=== PATIENT | female | born 1990 | race African-American/Black ===

== ENCOUNTER 2018-01-29 15:52 | Emergency (ER) | payer OTHER ==
[~2018-01-29] VITALS: Ht 162.6 cm; Wt 73.0 kg
[~2018-01-29 15:52] MED LIST: CIPRO500 MG PO; NAPROSYN500 MG PO
[2018-01-29] MEDS ORDERED: MEDROLDOSEPACK PO (16:25)
[2018-01-29] MEDS ORDERED: ZANTAC 150MG T150 MG PO (16:25)
[2018-01-29 16:44] VITALS: BP 124/68
== END 2018-01-29 16:45 | disposition home or self-care (01) ==
LOC: M.ERS 15:52
DX: L50.9 Urticaria, unspecified (principal); W57.XXXA Bitten or stung by nonvenomous insect and other nonvenomous arthropods, initial encounter; Y93.89 Activity, other specified; Y92.89 Other specified places as the place of occurrence of the external cause; Y99.8 Other external cause status

== ENCOUNTER 2018-07-04 13:23 | Emergency (ER) | payer OTHER ==
[~2018-07-04] VITALS: Ht 162.6 cm; Wt 72.6 kg
[~2018-07-04 13:23] MED LIST changes: +MEDROLDOSEPACK PO; +ZANTAC 150MG T150 MG PO
[2018-07-04 13:50] LABS: URINE BILIRUBIN NEGATIVE (Negative); URINE BLOOD TRACE (Negative); URINE CLARITY CLEAR; URINE COLOR YELLOW; URINE GLUCOSE-RANDOM NEGATIVE (Negative); URINE KETONES NEGATIVE (Negative); URINE LEUKOCYTES-REFLEX NEGATIVE (Negative); URINE NITRITE-REFLEX NEGATIVE (Negative); URINE PROTEIN NEGATIVE (Negative); URINE UROBILINOGEN 0.2 E.U./dl (0.2-1.0)
[2018-07-04 14:05] LABS: ABSOLUTE LYMPHOCYTES 1.6 thou/uL (0.8-5.3); ABSOLUTE MONOCYTES 0.4 thou/uL (0.0-1.2); ABSOLUTE NEUTROPHILS 3.2 thou/uL (1.6-8.1); BASOPHILS 0.5 %; EOSINOPHILS 0.8 %; HEMATOCRIT 34.8 % (37.0-47.0); HEMOGLOBIN 11.6 gm/dL (12.0-15.0); LYMPHOCYTES 30.7 %; MCH 27.8 pg (26.0-34.0); MCHC 33.3 g/dL (28.0-37.0); MCV 83.6 fL (80.0-100.0); MONOCYTES 7.8 %; MPV 8.4 fl. (7.2-11.1); NUCLEATED RBCS 0 /100WBC; PLATELET COUNT* 283 thou/uL (150-400); POLYS 60.2 %; RBC 4.16 mil/uL (4.20-5.00); RDW-CV 14.3 % (10.5-14.5); WBC 5.3 thou/uL (4.0-11.0)
[2018-07-04 14:11] LABS: ANION GAP 6 mmol/L (7-16); BUN 8 mg/dL (7-18); CALCIUM 9.1 mg/dL (8.5-10.1); CHLORIDE 103 mmol/L (98-107); CO2 30 mmol/L (21-32); CREATININE 0.7 mg/dL (0.6-1.3); GLUCOSE 112 mg/dL (70-99); POTASSIUM 3.2 mmol/L (3.5-5.1); SODIUM 139 mmol/L (136-145)
[2018-07-04 14:18] LABS: ALKALINE PHOSPHATASE 43 U/L (46-116); LIPASE 129 U/L (73-393); SGOT 13 U/L (15-37); SGPT 14 U/L (30-65); TOTAL BILIRUBIN 0.5 mg/dL (<0.1-1.0); TOTAL PROTEIN 8.1 g/dL (6.4-8.2); TROPONIN-I LEVEL <0.06 ng/mL (<0.06)
[2018-07-04] MEDS ORDERED: HYDROXYZINE HCL25 M1 PO (14:30)
[2018-07-04] MEDS ORDERED: POTASSIUM20 PO (14:40)
[2018-07-04 14:49] VITALS: BP 120/58
--- NOTE | 2018-07-04 15:02 | EKG ---
[place] [address] ELECTROCARDIOGRAM REPORT Name: GALOSHALINI Room: [facility]#: [id number] Admission: 07/04/18 Attend Phys: Discharge: 07/04/18 Date of : [birth year] Report #: [id number] THIS REPORT FOR: //name// [facility] ED Test Date: 2018-07-04 Test Time: 13:29:47 Pat Name: SHALINI ROSENTHAL Department: Room: Gender: F Tax Associate Attorney: : 1990 Requested By: Keyla Guadarrama Order Number: [id number] MD: Luca Soliman Measurements Intervals [place] Rate: 72 P: 43 NH: 159 QRS: 14 QRSD: 74 T: -17 QT: 381 QTc: 417 Interpretive Statements Sinus rhythm Borderline T abnormalities, diffuse leads No previous ECG available for comparison Electronically Signed On 07-04-2018 15:01:45 TEST DIRECTOR by Luca Soliman [email or web address] <ELECTRONICALLY SIGNED> By: Luca Soliman MD, [facility] 07/04/18 1501 1329 [id number] Luca Soliman MD, FACC /EPI
== END 2018-07-04 14:51 | disposition home or self-care (01) ==
LOC: M.ERS 13:23
PROVIDERS: Physician Assistant
DX: F41.9 Anxiety disorder, unspecified (principal); R53.1 Weakness; E87.6 Hypokalemia

== ENCOUNTER 2019-07-09 09:17 | Emergency (ER) | payer OTHER ==
[~2019-07-09] VITALS: Ht 162.6 cm; Wt 76.2 kg
[~2019-07-09 09:17] MED LIST changes: +HYDROXYZINE HCL25 M1 PO; +POTASSIUM20 PO
[2019-07-09 09:31] VITALS: BP 130/89
== END 2019-07-09 09:53 | disposition home or self-care (01) ==
LOC: M.ERS 09:17
DX: B35.4 Tinea corporis (principal)

== ENCOUNTER 2020-06-04 16:54 | Emergency (ER) | payer OTHER ==
[~2020-06-04] VITALS: Ht 162.6 cm; Wt 78.9 kg
[2020-06-04 17:33] LABS: URINE BILIRUBIN NEGATIVE (Negative); URINE BLOOD TRACE (Negative); URINE CLARITY CLEAR; URINE COLOR YELLOW; URINE GLUCOSE-RANDOM NEGATIVE (Negative); URINE KETONES NEGATIVE (Negative); URINE LEUKOCYTES-REFLEX TRACE (Negative); URINE NITRITE-REFLEX NEGATIVE (Negative); URINE PROTEIN NEGATIVE (Negative); URINE UROBILINOGEN 0.2 E.U./dl (0.2-1.0)
[2020-06-04 17:50] LABS: ABSOLUTE BASOPHILS 0.1 thou/uL (0.0-0.2); ABSOLUTE EOSINOPHILS 0.1 thou/uL (0.0-0.7); ABSOLUTE MONOCYTES 0.6 thou/uL (0.0-1.2); BASOPHILS 0.8 %; EOSINOPHILS 0.8 %; HEMATOCRIT 33.7 % (37.0-47.0); HEMOGLOBIN 10.8 gm/dL (12.0-15.0); LYMPHOCYTES 25.9 %; MCHC 32.2 g/dL (28.0-37.0); MCV 77.8 fL (80.0-100.0); MONOCYTES 7.3 %; MPV 8.3 fl. (7.2-11.1); NUCLEATED RBCS 0 /100WBC; PLATELET COUNT* 377 thou/uL (150-400); POLYS 65.2 %; RBC 4.33 mil/uL (4.20-5.00); RDW-CV 15.5 % (10.5-14.5); WBC 7.6 thou/uL (4.0-11.0)
[2020-06-04 18:06] LABS: CASTS None Seen /LPF (None Seen); SQUAMOUS >10 Many /LPF (0-3); URINE RBC 0-2 Rare /HPF (0-2); URINE WBC-REFLEX 0-5 Rare /HPF (0-5)
[2020-06-04 18:07] LABS: BACTERIA-REFLEX 1-9 Few /HPF (None Seen); CRYSTALS None Seen /LPF (None Seen); MUCUS 0-3 Light strn/LPF (None Seen)
[2020-06-04 18:20] LABS: CALCIUM 9.1 mg/dL (8.5-10.1); CREATININE 0.6 mg/dL (0.6-1.3)
[2020-06-04 18:24] LABS: ALBUMIN 3.9 g/dL (3.4-5.0); TOTAL BILIRUBIN 0.3 mg/dL (<0.1-1.0); TOTAL PROTEIN 8.4 g/dL (6.4-8.2)
[2020-06-04] MEDS ORDERED: BENTYL 20 MG TA20 M1 PO (19:58)
[2020-06-04] MEDS ORDERED: NABUMETONE 750750 M1 PO (19:58)
[2020-06-04 20:36] VITALS: BP 129/76
== END 2020-06-04 20:36 | disposition home or self-care (01) ==
LOC: M.ERS 16:54
PROVIDERS: Nurse Practitioner Family
DX: N83.202 Unspecified ovarian cyst, left side (principal); N83.201 Unspecified ovarian cyst, right side; D25.9 Leiomyoma of uterus, unspecified; R19.7 Diarrhea, unspecified